=== PATIENT | male | born 1975 | race Caucasian/White ===

== ENCOUNTER 2021-05-21 17:20 | Inpatient (IN) | payer SELFPAY ==
[~2021-05-21] VITALS: Ht 188 cm; Wt 99.8 kg
[2021-05-21] MEDS ORDERED: PIPERACILLIN/TAZOBACTAM 3.375 GM in SODIUM CHLORIDE 0.9% 50ML 50 ML IV STA (17:35)
[2021-05-21] MEDS ORDERED: KETOROLAC TROMETHAMINE 30 MG/ML VIAL IV STA (17:35)
[2021-05-21] MEDS ORDERED: ACETAMINOPHEN 325 MG TAB PO ONE (17:45)
[2021-05-21] MEDS ORDERED: SODIUM CHLORIDE 0.9% IV SCH (17:45)
[2021-05-21 18:13] LABS: BASOPHILS % 0.2 % (0.0-1.0); EOSINOPHILS % 0.3 % (0.0-6.0); HEMATOCRIT 31.5 % (38.2-49.6); HEMOGLOBIN 10.5 g/dL (14.0-18.0); LYMPHOCYTES # (AUTO) 1.5 (1.0-3.2); LYMPHOCYTES % 11.7 % (18.0-39.1); MEAN CORPUSCULAR HEMOGLOBIN 26.3 pg (28-32); MEAN CORPUSCULAR HGB CONC 33.3 g/dL (31-35); MEAN CORPUSCULAR VOLUME 78.9 fL (81-99); MONOCYTES # (AUTO) 0.9 (0.2-0.8); MONOCYTES % 6.5 % (4.4-11.3); NEUTROPHILS # (AUTO) 10.6 (2.1-6.9); NEUTROPHILS % 80.5 % (38.7-80.0); PLATELET COUNT 228 x10e3/uL (140-360); RED BLOOD COUNT 3.99 x10e6/uL (4.3-5.7); RED CELL DISTRIBUTION WIDTH 12.8 % (11.7-14.4)
[2021-05-21 18:21] LABS: INR 1.05; PROTHROMBIN TIME 14.6 seconds (11.9-14.5)
[2021-05-21 18:22] LABS: PARTIAL THROMBOPLASTIN TIME 31.4 seconds (23.8-35.5)
[2021-05-21] MEDS ORDERED: HYDROMORPHONE 1MG/1ML INJ IV STA (19:00)
[2021-05-21 19:06] LABS: ALBUMIN 2.7 g/dL (3.5-5.0); ALBUMIN/GLOBULIN RATIO 0.6 (0.8-2.0); ANION GAP 15.6 mmol/L (8-16); CALCIUM 8.7 mg/dL (8.4-10.2); CREATININE, SERUM 1.49 mg/dL (0.72-1.25); POTASSIUM 3.6 mmol/L (3.5-5.1)
[2021-05-21] MEDS ORDERED: Morphine 4mg Syringe 4 MG/ML INJ IV PRN (19:15)
[2021-05-21] MEDS ORDERED: TRULICITY0.75 MG/0. PO (19:54)
[2021-05-21] MEDS ORDERED: TRESIBA100 UNIT/1 SC (19:54)
[2021-05-21] MEDS: SODIUM CHLORIDE 0.9% 1000ML 1,000 ML IV SCH ×2 (20:07→22:27)
[2021-05-21 22:15] VITALS: BP 139/84
[2021-05-21] MEDS: HYDROMORPHONE 1MG/1ML INJ IV PRN (22:20)
[2021-05-21] MEDS: PIPERACILLIN/TAZOBACTAM 3.375 GM in SODIUM CHLORIDE 0.9% 50ML 50 ML IV SCH (22:27)
[2021-05-21 23:00] VITALS: BP 139/84
[2021-05-21 23:10] VITALS: BP 139/84
[2021-05-21] MEDS: ONDANSETRON HCL INJ 2MG/ML 2ML 2 MG/ML VIAL IV PRN (23:12)
[2021-05-22] VITALS (9 sets, daily range): BP systolic 125–157; BP diastolic 70–93
[2021-05-22] MEDS: PIPERACILLIN/TAZOBACTAM 3.375 GM in SODIUM CHLORIDE 0.9% 50ML 50 ML IV SCH ×3 (00:24→12:40)
[2021-05-22] MEDS: HYDROMORPHONE 1MG/1ML INJ IV PRN ×5 (02:52→20:54)
[2021-05-22 05:36] LABS: BASOPHILS % 0.2 % (0.0-1.0); EOSINOPHILS # (AUTO) 0.1 (0.0-0.4); EOSINOPHILS % 0.7 % (0.0-6.0); HEMATOCRIT 28.4 % (38.2-49.6); HEMOGLOBIN 9.2 g/dL (14.0-18.0); LYMPHOCYTES # (AUTO) 1.9 (1.0-3.2); LYMPHOCYTES % 19.5 % (18.0-39.1); MEAN CORPUSCULAR HEMOGLOBIN 26.3 pg (28-32); MEAN CORPUSCULAR HGB CONC 32.4 g/dL (31-35); MEAN CORPUSCULAR VOLUME 81.1 fL (81-99); MONOCYTES # (AUTO) 0.7 (0.2-0.8); MONOCYTES % 7.1 % (4.4-11.3); NEUTROPHILS # (AUTO) 6.9 (2.1-6.9); NEUTROPHILS % 71.9 % (38.7-80.0); PLATELET COUNT 182 x10e3/uL (140-360); RED CELL DISTRIBUTION WIDTH 12.9 % (11.7-14.4)
[2021-05-22 05:57] LABS: ALBUMIN 2.4 g/dL (3.5-5.0); ALBUMIN/GLOBULIN RATIO 0.6 (0.8-2.0); ANION GAP 13.9 mmol/L (8-16); CALCIUM 8.3 mg/dL (8.4-10.2); CREATININE, SERUM 1.53 mg/dL (0.72-1.25); POTASSIUM 3.9 mmol/L (3.5-5.1)
[2021-05-22] MEDS: SODIUM CHLORIDE 0.9% 1000ML 1,000 ML IV SCH ×2 (07:42→20:54)
[2021-05-22] MEDS ORDERED: ONDANSETRON HCL INJ 2MG/ML 2ML 2 MG/ML VIAL ONE (12:03)
[2021-05-22] MEDS ORDERED: METOCLOPRAMIDE HCL 10 MG/2ML VIAL ONE (12:03)
[2021-05-22] MEDS ORDERED: POVIDONE IODINE 0.05% 0.05 % ML PO ONE (12:03)
[2021-05-22] MEDS ORDERED: LIDOCAINE HCL 2% LOCAL INJ 5 ML SDV VIAL INJ ONE (12:03)
[2021-05-22] MEDS ORDERED: PROPOFOL IV EMULSION 10 MG/ML 20 ML VIAL ONE (12:03)
[2021-05-22] MEDS ORDERED: BUPIVACAINE HCL 0.5% INJ 30 ML VIAL INJ ONE (12:13)
[2021-05-22] MEDS ORDERED: Vancomycin IV 1.25 GM in SODIUM CHLORIDE 0.9% 250ML 250 ML IV SCH (14:00)
[2021-05-22] MEDS ORDERED: FENTANYL CITRATE/PF 100MCG/2 ML INJ ONE ×2 (14:35→14:43)
[2021-05-22] MEDS ORDERED: MIDAZOLAM HCL 2 MG/2 ML VIAL ONE (14:35)
[2021-05-22] MEDS: PIPERACILLIN/TAZOBACTAM 2.25 GM in SODIUM CHLORIDE 0.9% 50ML 50 ML IV SCH ×2 (17:46→23:46)
[2021-05-23] VITALS (7 sets, daily range): BP systolic 137–171; BP diastolic 74–97
[2021-05-23] MEDS: HYDROMORPHONE 1MG/1ML INJ IV PRN ×5 (00:56→21:10)
[2021-05-23] MEDS: SODIUM CHLORIDE 0.9% 1000ML 1,000 ML IV SCH ×2 (02:57→12:40)
[2021-05-23] MEDS: PIPERACILLIN/TAZOBACTAM 2.25 GM in SODIUM CHLORIDE 0.9% 50ML 50 ML IV SCH ×2 (09:22→16:35)
[2021-05-23] MEDS: BENZONATATE 100 MG CAP PO SCH ×2 (12:36→20:52)
[2021-05-23] MEDS: PROMETHAZINE/CODEINE 5 ML UDC PO PRN (17:49)
[2021-05-23] MEDS: Vancomycin IV 1.25 GM in SODIUM CHLORIDE 0.9% 250ML 250 ML IV SCH (19:24)
[2021-05-23] MEDS ORDERED: FUROSEMIDE INJ 10 MG/ML 2 ML VIAL IV ONE ×2 (19:40→21:30)
[2021-05-23] MEDS ORDERED: CLONIDINE HCL 0.1 MG TAB PO PRN (20:15)
[2021-05-23] MEDS ORDERED: ASPIRIN 81 MG CHEW TAB PO ONE (20:30)
[2021-05-23 20:45] LABS: BASOPHILS % 0.3 % (0.0-1.0); EOSINOPHILS % 0.3 % (0.0-6.0); HEMATOCRIT 32.4 % (38.2-49.6); HEMOGLOBIN 10.2 g/dL (14.0-18.0); LYMPHOCYTES # (AUTO) 1.2 (1.0-3.2); LYMPHOCYTES % 7.8 % (18.0-39.1); MEAN CORPUSCULAR HGB CONC 31.5 g/dL (31-35); MEAN CORPUSCULAR VOLUME 82.4 fL (81-99); MONOCYTES # (AUTO) 1.1 (0.2-0.8); MONOCYTES % 7.1 % (4.4-11.3); NEUTROPHILS # (AUTO) 12.6 (2.1-6.9); NEUTROPHILS % 83.5 % (38.7-80.0); PLATELET COUNT 258 x10e3/uL (140-360); RED BLOOD COUNT 3.93 x10e6/uL (4.3-5.7); RED CELL DISTRIBUTION WIDTH 12.9 % (11.7-14.4)
[2021-05-23 20:59] LABS: ALBUMIN 2.6 g/dL (3.5-5.0); ALBUMIN/GLOBULIN RATIO 0.5 (0.8-2.0); ANION GAP 18.1 mmol/L (8-16); CALCIUM 8.9 mg/dL (8.4-10.2); CREATININE, SERUM 1.58 mg/dL (0.72-1.25); POTASSIUM 4.1 mmol/L (3.5-5.1)
[2021-05-23] MEDS: INSULIN GLARGINE 100 UNITS/ML VIAL SQ SCH (21:00)
[2021-05-23] MEDS: INSULIN LISPRO 100 UNIT/1 ML 3ML VIAL SQ SCH (21:00)
[2021-05-23] MEDS ORDERED: SODIUM CHLORIDE 0.9% 50ML 50 ML ONE (21:29)
[2021-05-23] MEDS ORDERED: IOPAMIDOL 370 MG/ML 200 ML INFUS..BTL INJ ONE (21:29)
[2021-05-23] MEDS: ACETAMINOPHEN 325 MG TAB PO PRN (22:00)
[2021-05-24] VITALS (14 sets, daily range): BP systolic 103–154; BP diastolic 65–82
[2021-05-24 00:02] LABS: CREATINE KINASE MB 11.1 ng/mL (0-5.0)
[2021-05-24] MEDS: HYDROMORPHONE 1MG/1ML INJ IV PRN ×5 (00:30→20:16)
[2021-05-24] MEDS: PIPERACILLIN/TAZOBACTAM 2.25 GM in SODIUM CHLORIDE 0.9% 50ML 50 ML IV SCH ×3 (00:45→17:35)
[2021-05-24] MEDS ORDERED: ASPIRIN 81 MG CHEW TAB PO ONE (05:45)
[2021-05-24 05:50] LABS: BASOPHILS % 0.2 % (0.0-1.0); EOSINOPHILS # (AUTO) 0.1 (0.0-0.4); EOSINOPHILS % 1.2 % (0.0-6.0); HEMATOCRIT 30.9 % (38.2-49.6); LYMPHOCYTES # (AUTO) 1.6 (1.0-3.2); LYMPHOCYTES % 12.8 % (18.0-39.1); MEAN CORPUSCULAR HEMOGLOBIN 26.2 pg (28-32); MEAN CORPUSCULAR HGB CONC 32.4 g/dL (31-35); MEAN CORPUSCULAR VOLUME 81.1 fL (81-99); MONOCYTES # (AUTO) 1.1 (0.2-0.8); NEUTROPHILS # (AUTO) 9.2 (2.1-6.9); NEUTROPHILS % 75.9 % (38.7-80.0); PLATELET COUNT 235 x10e3/uL (140-360); RED BLOOD COUNT 3.81 x10e6/uL (4.3-5.7); RED CELL DISTRIBUTION WIDTH 13.1 % (11.7-14.4)
[2021-05-24 06:09] LABS: ANION GAP 14.7 mmol/L (8-16); CALCIUM 8.7 mg/dL (8.4-10.2); CREATININE, SERUM 1.49 mg/dL (0.72-1.25); MAGNESIUM 1.9 MG/DL (1.3-2.1); POTASSIUM 3.7 mmol/L (3.5-5.1)
[2021-05-24] MEDS: PROMETHAZINE/CODEINE 5 ML UDC PO PRN (06:21)
[2021-05-24 07:26] LABS: CREATINE KINASE MB 12.8 ng/mL (0-5.0)
[2021-05-24] MEDS: INSULIN LISPRO 100 UNIT/1 ML 3ML VIAL SQ SCH ×4 (07:30→21:00)
[2021-05-24] MEDS: BENZONATATE 100 MG CAP PO SCH ×3 (08:18→21:07)
[2021-05-24] MEDS ORDERED: ALBUTEROL SULF 0.083% NEB SOLN 3 ML NEB NEB PRN (09:00)
[2021-05-24] MEDS ORDERED: ASPIRIN 325 MG TAB PO SCH (09:00)
[2021-05-24] MEDS ORDERED: HEPARIN SOD (PORCINE) 1000 UNIT/ML 30ML ONE (10:07)
[2021-05-24] MEDS ORDERED: LIDOCAINE HCL 2% LOCAL 20 ML VIAL ONE (10:08)
[2021-05-24] MEDS ORDERED: FENTANYL CITRATE/PF 100MCG/2 ML INJ ONE (10:08)
[2021-05-24] MEDS ORDERED: HEPARIN SOD/SOD CHLORIDE 2,000 ML ONE (10:08)
[2021-05-24] MEDS ORDERED: MIDAZOLAM HCL 2 MG/2 ML VIAL ONE (10:08)
[2021-05-24] MEDS ORDERED: IOPAMIDOL 370 MG/ML 200 ML INFUS..BTL INJ ONE (10:09)
[2021-05-24] MEDS ORDERED: NITROGLYCERIN/D5W 200 MCG/ML 250 ML ONE (10:09)
[2021-05-24] MEDS ORDERED: SODIUM CHLORIDE 0.9% 1000ML 1,000 ML ONE (10:09)
[2021-05-24] MEDS ORDERED: BIVALRIUDIN 250 MG/VIAL VIAL IV ONE (10:56)
[2021-05-24] MEDS ORDERED: SODIUM CHLORIDE 0.9% 50ML 50 ML ONE (10:57)
[2021-05-24] MEDS ORDERED: PRASUGREL 10 MG TAB ONE (11:15)
[2021-05-24] MEDS ORDERED: SODIUM CHLORIDE 0.9% 1000ML 1,000 ML IV SCH (12:15)
[2021-05-24] MEDS ORDERED: FUROSEMIDE INJ 10 MG/ML 4 ML VIAL IV ONE (16:00)
[2021-05-24] MEDS: Vancomycin IV 1.25 GM in SODIUM CHLORIDE 0.9% 250ML 250 ML IV SCH (19:00)
[2021-05-24] MEDS: ACETAMINOPHEN 325 MG TAB PO PRN (20:00)
[2021-05-24] MEDS: INSULIN GLARGINE 100 UNITS/ML VIAL SQ SCH (21:00)
[2021-05-24] MEDS ORDERED: INSULIN GLARGINE 100 UNITS/ML VIAL SQ SCH (21:00)
[2021-05-24] MEDS: ATORVASTATIN 20 MG TAB PO SCH (21:07)
[2021-05-25] VITALS (9 sets, daily range): BP systolic 127–159; BP diastolic 75–90
[2021-05-25] MEDS: HYDROMORPHONE 1MG/1ML INJ IV PRN ×6 (00:26→22:50)
[2021-05-25] MEDS: ONDANSETRON HCL INJ 2MG/ML 2ML 2 MG/ML VIAL IV PRN (04:46)
[2021-05-25 06:22] LABS: BASOPHILS % 0.3 % (0.0-1.0); EOSINOPHILS # (AUTO) 0.2 (0.0-0.4); EOSINOPHILS % 1.9 % (0.0-6.0); HEMATOCRIT 30.3 % (38.2-49.6); HEMOGLOBIN 9.5 g/dL (14.0-18.0); LYMPHOCYTES # (AUTO) 1.7 (1.0-3.2); LYMPHOCYTES % 14.7 % (18.0-39.1); MEAN CORPUSCULAR HEMOGLOBIN 25.8 pg (28-32); MEAN CORPUSCULAR HGB CONC 31.4 g/dL (31-35); MEAN CORPUSCULAR VOLUME 82.3 fL (81-99); NEUTROPHILS # (AUTO) 8.7 (2.1-6.9); NEUTROPHILS % 73.7 % (38.7-80.0); PLATELET COUNT 241 x10e3/uL (140-360); RED BLOOD COUNT 3.68 x10e6/uL (4.3-5.7); RED CELL DISTRIBUTION WIDTH 13.2 % (11.7-14.4)
[2021-05-25 06:54] LABS: ALBUMIN 2.3 g/dL (3.5-5.0); ALBUMIN/GLOBULIN RATIO 0.5 (0.8-2.0); ANION GAP 14.7 mmol/L (8-16); CALCIUM 8.8 mg/dL (8.4-10.2); CREATININE, SERUM 1.37 mg/dL (0.72-1.25); POTASSIUM 3.7 mmol/L (3.5-5.1)
[2021-05-25] MEDS: PANTOPRAZOLE SOD 40 MG TABEC PO SCH (07:30)
[2021-05-25] MEDS: INSULIN LISPRO 100 UNIT/1 ML 3ML VIAL SQ SCH ×4 (07:30→20:33)
[2021-05-25] MEDS: ASPIRIN 325 MG TAB PO SCH (09:08)
[2021-05-25] MEDS: BENZONATATE 100 MG CAP PO SCH ×3 (09:08→20:32)
[2021-05-25] MEDS: PIPERACILLIN/TAZOBACTAM 2.25 GM in SODIUM CHLORIDE 0.9% 50ML 50 ML IV SCH ×5 (09:29→23:17)
[2021-05-25] MEDS: PRASUGREL 10 MG TAB PO SCH (09:29)
[2021-05-25] MEDS ORDERED: SODIUM CHLORIDE 0.9% 250ML 250 ML ONE ×3 (09:38→20:36)
[2021-05-25] MEDS: Vancomycin IV 1.25 GM in SODIUM CHLORIDE 0.9% 250ML 250 ML IV SCH (20:32)
[2021-05-25] MEDS: ATORVASTATIN 20 MG TAB PO SCH (20:32)
[2021-05-25] MEDS: INSULIN GLARGINE 100 UNITS/ML VIAL SQ SCH (20:33)
[2021-05-26] VITALS (8 sets, daily range): BP systolic 112–141; BP diastolic 67–79
[2021-05-26] MEDS: HYDROMORPHONE 1MG/1ML INJ IV PRN ×5 (03:35→20:45)
[2021-05-26 05:29] LABS: ALBUMIN/GLOBULIN RATIO 0.5 (0.8-2.0); ANION GAP 12.4 mmol/L (8-16); CREATININE, SERUM 1.39 mg/dL (0.72-1.25); POTASSIUM 3.4 mmol/L (3.5-5.1)
[2021-05-26 05:34] LABS: BASOPHILS % 0.6 % (0.0-1.0); EOSINOPHILS # (AUTO) 0.3 (0.0-0.4); EOSINOPHILS % 4.6 % (0.0-6.0); HEMATOCRIT 27.4 % (38.2-49.6); HEMOGLOBIN 8.4 g/dL (14.0-18.0); LYMPHOCYTES # (AUTO) 1.6 (1.0-3.2); LYMPHOCYTES % 22.2 % (18.0-39.1); MEAN CORPUSCULAR HEMOGLOBIN 25.8 pg (28-32); MEAN CORPUSCULAR HGB CONC 30.7 g/dL (31-35); MEAN CORPUSCULAR VOLUME 84.3 fL (81-99); MONOCYTES # (AUTO) 0.7 (0.2-0.8); NEUTROPHILS # (AUTO) 4.5 (2.1-6.9); NEUTROPHILS % 62.1 % (38.7-80.0); PLATELET COUNT 281 x10e3/uL (140-360); RED BLOOD COUNT 3.25 x10e6/uL (4.3-5.7); RED CELL DISTRIBUTION WIDTH 13.3 % (11.7-14.4)
[2021-05-26 05:49] LABS: CALCIUM 8.5 mg/dL (8.4-10.2)
[2021-05-26] MEDS: PIPERACILLIN/TAZOBACTAM 2.25 GM in SODIUM CHLORIDE 0.9% 50ML 50 ML IV SCH ×2 (07:49→16:30)
[2021-05-26] MEDS: INSULIN LISPRO 100 UNIT/1 ML 3ML VIAL SQ SCH ×4 (08:00→20:55)
[2021-05-26] MEDS: ASPIRIN 325 MG TAB PO SCH (09:41)
[2021-05-26] MEDS: PRASUGREL 10 MG TAB PO SCH (09:42)
[2021-05-26] MEDS: BENZONATATE 100 MG CAP PO SCH ×3 (09:42→20:54)
[2021-05-26] MEDS: PANTOPRAZOLE SOD 40 MG TABEC PO SCH (09:42)
[2021-05-26] MEDS: Vancomycin IV 1 GM in SODIUM CHLORIDE 0.9% 250ML 250 ML IV SCH (19:30)
[2021-05-26] MEDS: ATORVASTATIN 20 MG TAB PO SCH (20:54)
[2021-05-26] MEDS: INSULIN GLARGINE 100 UNITS/ML VIAL SQ SCH (20:56)
[2021-05-27] MEDS: HYDROMORPHONE 1MG/1ML INJ IV PRN ×4 (00:52→14:49)
[2021-05-27 04:57] VITALS: BP 128/68
[2021-05-27] MEDS: INSULIN LISPRO 100 UNIT/1 ML 3ML VIAL SQ SCH ×2 (07:30→11:58)
[2021-05-27 08:09] VITALS: BP 142/89
[2021-05-27 08:16] VITALS: BP 142/89
[2021-05-27] MEDS: Vancomycin IV 1 GM in SODIUM CHLORIDE 0.9% 250ML 250 ML IV SCH (08:28)
[2021-05-27] MEDS: PANTOPRAZOLE SOD 40 MG TABEC PO SCH (08:29)
[2021-05-27] MEDS: BENZONATATE 100 MG CAP PO SCH ×2 (08:29→14:49)
[2021-05-27] MEDS: PRASUGREL 10 MG TAB PO SCH (08:29)
[2021-05-27] MEDS: PIPERACILLIN/TAZOBACTAM 2.25 GM in SODIUM CHLORIDE 0.9% 50ML 50 ML IV SCH ×3 (08:29)
[2021-05-27] MEDS ORDERED: ASPIRIN 81 MG ENTERIC COATED PO SCH (09:00)
[2021-05-27] MEDS ORDERED: AZITHROMYCIN 250 MG TAB PO SCH (09:00)
[2021-05-27 11:47] VITALS: BP 147/86
[2021-05-27 15:47] VITALS: BP 151/89
[2021-05-27] MEDS ORDERED: EFFIENT10 MG PO (16:04)
[2021-05-27] MEDS ORDERED: DOXYCYCLINE HY100 MG PO (16:05)
[2021-05-27] MEDS ORDERED: CIPRO500 MG PO (16:06)
[2021-05-27] MEDS ORDERED: METOPROLOL TARTRATE 25 MG TAB PO SCH (17:00)
== END 2021-05-27 17:18 | disposition home or self-care (01) | DRG 616 ==
LOC: ER 17:36 → ERHOLD 19:31 → MED/SURG3 22:03 → IMCU 05-24 12:47 → MED/SURG3 05-25 15:00
PROVIDERS: ADMIT Family Medicine; ATTEND Family Medicine
PROC: 027034Z Dilation of Coronary Artery, One Artery with Drug-eluting Intraluminal Device, Percutaneous Approach (ICD-10-PCS; principal; 2021-05-24)
PROC: 0Y6Q0Z0 Detachment at Left 1st Toe, Complete, Open Approach (ICD-10-PCS; 2021-05-24)
PROC: 4A023N7 Measurement of Cardiac Sampling and Pressure, Left Heart, Percutaneous Approach (ICD-10-PCS; 2021-05-24)
PROC: B2111ZZ Fluoroscopy of Multiple Coronary Arteries using Low Osmolar Contrast (ICD-10-PCS; 2021-05-24)
PROC: B2151ZZ Fluoroscopy of Left Heart using Low Osmolar Contrast (ICD-10-PCS; 2021-05-24)
DX: E11.69 Type 2 diabetes mellitus with other specified complication (principal); A48.0 Gas gangrene; I21.4 Non-ST elevation (NSTEMI) myocardial infarction; I50.23 Acute on chronic systolic (congestive) heart failure; J18.9 Pneumonia, unspecified organism; J96.91 Respiratory failure, unspecified with hypoxia; E11.52 Type 2 diabetes mellitus with diabetic peripheral angiopathy with gangrene; M86.172 Other acute osteomyelitis, left ankle and foot; N17.9 Acute kidney failure, unspecified; Z79.899 Other long term (current) drug therapy; E78.5 Hyperlipidemia, unspecified; Z87.820 Personal history of traumatic brain injury; E11.22 Type 2 diabetes mellitus with diabetic chronic kidney disease; I12.9 Hypertensive chronic kidney disease with stage 1 through stage 4 chronic kidney disease, or unspecified chronic kidney disease; N18.9 Chronic kidney disease, unspecified; Z79.4 Long term (current) use of insulin; Z20.822 Contact with and (suspected) exposure to COVID-19
CPT/HCPCS: 36415; 71045; 71260; 80048; 80053; 80202; 82550; 82553; 82948; 83036; 83605; 83735; 83880; 84443; 84484; 85025; 85610; 85730; 87040; 88304; 88305; 88311; 92928; 93005; 93306; 93458; 94799; 96372; 99152; 99153; 99284; C1769; C1874; C1887; J0456; J0583; J1170; J1644; J1815; J1940; J2001; J2250; J2405; J2543; J2765; J3010; J3370; J7030; J7050; Q9967; U0002

== ENCOUNTER 2021-06-25 15:27 | Inpatient (IN) | payer SELFPAY ==
[~2021-06-25] VITALS: Ht 188 cm; Wt 99.8 kg
[~2021-06-25 15:27] MED LIST: CIPRO500 MG PO; DOXYCYCLINE HY100 MG PO; EFFIENT10 MG PO; TRESIBA100 UNIT/1 SC; TRULICITY0.75 MG/0. PO
[2021-06-25] MEDS ORDERED: SODIUM CHLORIDE 0.9% 1000ML 1,000 ML IV STA (15:38)
[2021-06-25] MEDS ORDERED: Morphine 4mg Syringe 4 MG/ML INJ IV STA (15:38)
[2021-06-25] MEDS ORDERED: ONDANSETRON HCL INJ 2MG/ML 2ML 2 MG/ML VIAL IV STA (15:38)
[2021-06-25 15:59] LABS: BASOPHILS % 0.5 % (0.0-1.0); EOSINOPHILS # (AUTO) 0.1 (0.0-0.4); EOSINOPHILS % 1.5 % (0.0-6.0); HEMATOCRIT 36.4 % (38.2-49.6); HEMOGLOBIN 11.6 g/dL (14.0-18.0); LYMPHOCYTES # (AUTO) 1.8 (1.0-3.2); LYMPHOCYTES % 21.2 % (18.0-39.1); MEAN CORPUSCULAR HEMOGLOBIN 25.5 pg (28-32); MEAN CORPUSCULAR HGB CONC 31.9 g/dL (31-35); MONOCYTES # (AUTO) 0.7 (0.2-0.8); MONOCYTES % 7.8 % (4.4-11.3); NEUTROPHILS # (AUTO) 5.9 (2.1-6.9); NEUTROPHILS % 68.6 % (38.7-80.0); PLATELET COUNT 257 x10e3/uL (140-360); RED BLOOD COUNT 4.55 x10e6/uL (4.3-5.7); RED CELL DISTRIBUTION WIDTH 13.2 % (11.7-14.4)
[2021-06-25] MEDS ORDERED: PIPERACILLIN/TAZOBACTAM 3.375 GM in SODIUM CHLORIDE 0.9% 50ML 50 ML IV ONE (16:00)
[2021-06-25] MEDS ORDERED: Vancomycin IV 1 GM in SODIUM CHLORIDE 0.9% 250ML 250 ML IV ONE (16:00)
[2021-06-25 16:07] LABS: INR 0.97; PROTHROMBIN TIME 13.6 seconds (11.9-14.5)
[2021-06-25 16:18] LABS: ALBUMIN 3.4 g/dL (3.5-5.0); ALBUMIN/GLOBULIN RATIO 0.7 (0.8-2.0); ANION GAP 13.9 mmol/L (8-16); CALCIUM 9.6 mg/dL (8.4-10.2); CREATININE, SERUM 1.61 mg/dL (0.72-1.25); MAGNESIUM 1.8 MG/DL (1.3-2.1); POTASSIUM 3.9 mmol/L (3.5-5.1)
[2021-06-25 16:24] LABS: CREATINE KINASE MB 2.3 ng/mL (0-5.0)
[2021-06-25] MEDS ORDERED: Morphine 4mg Syringe 4 MG/ML INJ IV PRN (16:30)
[2021-06-25] MEDS ORDERED: ONDANSETRON HCL INJ 2MG/ML 2ML 2 MG/ML VIAL IV PRN (16:30)
[2021-06-25] MEDS ORDERED: HYDROCODONE/APAP 7.5MG-325MG 1 EA TAB PO PRN (16:45)
[2021-06-25] MEDS ORDERED: IBUPROFEN 600 MG TAB PO PRN (17:15)
[2021-06-25] MEDS ORDERED: IBUPROFEN 600 MG TAB ONE (17:30)
[2021-06-25 17:45] VITALS: BP 178/90
[2021-06-25 17:46] VITALS: BP 178/90
[2021-06-25 17:50] VITALS: BP 178/90
[2021-06-25] MEDS: SODIUM CHLORIDE 0.9% 1000ML 1,000 ML IV SCH (18:13)
[2021-06-25 19:03] LABS: CREATINE KINASE MB 1.6 ng/mL (0-5.0)
[2021-06-25 19:52] VITALS: BP 116/72
[2021-06-25 21:00] VITALS: BP 116/72
[2021-06-25] MEDS: PIPERACILLIN/TAZOBACTAM 3.375 GM in SODIUM CHLORIDE 0.9% 50ML 50 ML IV SCH (21:24)
[2021-06-25] MEDS: HYDROCODONE/APAP 10MG-325MG TAB PO PRN (21:25)
[2021-06-26] VITALS (8 sets, daily range): BP systolic 113–143; BP diastolic 69–82
[2021-06-26 01:51] LABS: CREATINE KINASE MB 1.3 ng/mL (0-5.0)
[2021-06-26] MEDS: SODIUM CHLORIDE 0.9% 1000ML 1,000 ML IV SCH ×3 (02:30→22:30)
[2021-06-26] MEDS: PIPERACILLIN/TAZOBACTAM 3.375 GM in SODIUM CHLORIDE 0.9% 50ML 50 ML IV SCH ×4 (03:03→20:53)
[2021-06-26] MEDS: HYDROCODONE/APAP 10MG-325MG TAB PO PRN ×3 (03:20→22:12)
[2021-06-26] MEDS: Vancomycin IV 1 GM in SODIUM CHLORIDE 0.9% 250ML 250 ML IV SCH ×2 (04:00→17:18)
[2021-06-26 05:01] LABS: BASOPHILS % 0.4 % (0.0-1.0); EOSINOPHILS # (AUTO) 0.4 (0.0-0.4); EOSINOPHILS % 6.9 % (0.0-6.0); HEMATOCRIT 28.8 % (38.2-49.6); HEMOGLOBIN 9.3 g/dL (14.0-18.0); LYMPHOCYTES # (AUTO) 1.9 (1.0-3.2); LYMPHOCYTES % 35.8 % (18.0-39.1); MEAN CORPUSCULAR HEMOGLOBIN 25.7 pg (28-32); MEAN CORPUSCULAR HGB CONC 32.3 g/dL (31-35); MEAN CORPUSCULAR VOLUME 79.6 fL (81-99); MONOCYTES # (AUTO) 0.6 (0.2-0.8); MONOCYTES % 11.4 % (4.4-11.3); NEUTROPHILS # (AUTO) 2.4 (2.1-6.9); NEUTROPHILS % 45.1 % (38.7-80.0); PLATELET COUNT 185 x10e3/uL (140-360); RED BLOOD COUNT 3.62 x10e6/uL (4.3-5.7); RED CELL DISTRIBUTION WIDTH 13.1 % (11.7-14.4)
[2021-06-26 05:20] LABS: ALBUMIN 2.6 g/dL (3.5-5.0); ALBUMIN/GLOBULIN RATIO 0.7 (0.8-2.0); ANION GAP 12.6 mmol/L (8-16); CALCIUM 8.4 mg/dL (8.4-10.2); CREATININE, SERUM 1.5 mg/dL (0.72-1.25); POTASSIUM 3.6 mmol/L (3.5-5.1)
[2021-06-26 07:30] LABS: CREATINE KINASE MB 1.3 ng/mL (0-5.0)
[2021-06-26] MEDS: HYDROMORPHONE 1MG/1ML INJ IV PRN ×2 (13:35→19:45)
[2021-06-27] VITALS (8 sets, daily range): BP systolic 130–148; BP diastolic 76–91
[2021-06-27] MEDS: HYDROMORPHONE 1MG/1ML INJ IV PRN ×4 (02:10→21:37)
[2021-06-27] MEDS: PIPERACILLIN/TAZOBACTAM 3.375 GM in SODIUM CHLORIDE 0.9% 50ML 50 ML IV SCH ×4 (02:50→19:57)
[2021-06-27] MEDS: HYDROCODONE/APAP 10MG-325MG TAB PO PRN ×2 (04:16→19:57)
[2021-06-27] MEDS: Vancomycin IV 1 GM in SODIUM CHLORIDE 0.9% 250ML 250 ML IV SCH ×2 (04:17→17:55)
[2021-06-27] MEDS: POLYETHYLENE GLYCOL 3350 17 GM PACK PO SCH (07:38)
[2021-06-27] MEDS: SODIUM CHLORIDE 0.9% 1000ML 1,000 ML IV SCH ×2 (08:47→17:55)
[2021-06-27] MEDS ORDERED: ONDANSETRON HCL 4 MG ORAL DISINTEGRATING TAB PO PRN (10:30)
[2021-06-27] MEDS ORDERED: KETOROLAC TROMETHAMINE 30 MG/ML VIAL ONE (12:50)
[2021-06-27] MEDS ORDERED: ONDANSETRON HCL INJ 2MG/ML 2ML 2 MG/ML VIAL ONE (12:50)
[2021-06-27] MEDS ORDERED: PROPOFOL IV EMULSION 10 MG/ML 20 ML VIAL ONE (12:50)
[2021-06-27] MEDS ORDERED: POVIDONE IODINE 0.05% 0.05 % ML PO ONE (12:50)
[2021-06-27] MEDS ORDERED: DEXAMETHASONE SOD PHOS INJ 4 MG/ML SDV ONE (12:50)
[2021-06-27] MEDS ORDERED: LIDOCAINE HCL 2% LOCAL INJ 5 ML SDV VIAL INJ ONE (12:50)
[2021-06-27] MEDS ORDERED: BUPIVACAINE HCL 0.5% INJ 30 ML VIAL INJ ONE (13:29)
[2021-06-27] MEDS ORDERED: FENTANYL CITRATE/PF 100MCG/2 ML INJ ONE (13:39)
[2021-06-27] MEDS ORDERED: MIDAZOLAM HCL 2 MG/2 ML VIAL ONE (13:39)
[2021-06-28] VITALS (7 sets, daily range): BP systolic 137–164; BP diastolic 72–86
[2021-06-28] MEDS: HYDROCODONE/APAP 10MG-325MG TAB PO PRN ×4 (01:20→21:25)
[2021-06-28] MEDS: PIPERACILLIN/TAZOBACTAM 3.375 GM in SODIUM CHLORIDE 0.9% 50ML 50 ML IV SCH ×4 (03:54→20:50)
[2021-06-28] MEDS: HYDROMORPHONE 1MG/1ML INJ IV PRN ×3 (03:55→16:36)
[2021-06-28] MEDS: SODIUM CHLORIDE 0.9% 1000ML 1,000 ML IV SCH ×2 (04:38→14:46)
[2021-06-28] MEDS: Vancomycin IV 1 GM in SODIUM CHLORIDE 0.9% 250ML 250 ML IV SCH ×2 (04:38→16:25)
[2021-06-28 06:01] LABS: BASOPHILS % 0.3 % (0.0-1.0); EOSINOPHILS % 0.2 % (0.0-6.0); HEMATOCRIT 28.6 % (38.2-49.6); LYMPHOCYTES # (AUTO) 1.2 (1.0-3.2); LYMPHOCYTES % 19.6 % (18.0-39.1); MEAN CORPUSCULAR HEMOGLOBIN 25.1 pg (28-32); MEAN CORPUSCULAR HGB CONC 31.5 g/dL (31-35); MEAN CORPUSCULAR VOLUME 79.7 fL (81-99); MONOCYTES # (AUTO) 0.4 (0.2-0.8); MONOCYTES % 6.8 % (4.4-11.3); NEUTROPHILS # (AUTO) 4.5 (2.1-6.9); NEUTROPHILS % 72.9 % (38.7-80.0); PLATELET COUNT 216 x10e3/uL (140-360); RED BLOOD COUNT 3.59 x10e6/uL (4.3-5.7)
[2021-06-28 06:20] LABS: ANION GAP 12.1 mmol/L (8-16); CALCIUM 8.3 mg/dL (8.4-10.2); CREATININE, SERUM 1.33 mg/dL (0.72-1.25); POTASSIUM 4.1 mmol/L (3.5-5.1)
[2021-06-28] MEDS: POLYETHYLENE GLYCOL 3350 17 GM PACK PO SCH (08:44)
[2021-06-28] MEDS: INSULIN GLARGINE 100 UNITS/ML VIAL SQ SCH ×2 (09:42→22:03)
[2021-06-29] MEDS: SODIUM CHLORIDE 0.9% 1000ML 1,000 ML IV SCH (00:55)
[2021-06-29 01:05] VITALS: BP 164/86
[2021-06-29] MEDS: PIPERACILLIN/TAZOBACTAM 3.375 GM in SODIUM CHLORIDE 0.9% 50ML 50 ML IV SCH ×4 (02:57→20:30)
[2021-06-29 04:00] VITALS: BP 151/82
[2021-06-29] MEDS: Vancomycin IV 1 GM in SODIUM CHLORIDE 0.9% 250ML 250 ML IV SCH ×2 (04:05→17:29)
[2021-06-29 06:08] LABS: BASOPHILS % 0.3 % (0.0-1.0); EOSINOPHILS # (AUTO) 0.2 (0.0-0.4); EOSINOPHILS % 3.7 % (0.0-6.0); HEMATOCRIT 27.2 % (38.2-49.6); HEMOGLOBIN 8.8 g/dL (14.0-18.0); LYMPHOCYTES # (AUTO) 2.9 (1.0-3.2); LYMPHOCYTES % 48.7 % (18.0-39.1); MEAN CORPUSCULAR HEMOGLOBIN 25.6 pg (28-32); MEAN CORPUSCULAR HGB CONC 32.4 g/dL (31-35); MEAN CORPUSCULAR VOLUME 79.1 fL (81-99); MONOCYTES # (AUTO) 0.3 (0.2-0.8); NEUTROPHILS # (AUTO) 2.5 (2.1-6.9); PLATELET COUNT 191 x10e3/uL (140-360); RED BLOOD COUNT 3.44 x10e6/uL (4.3-5.7); RED CELL DISTRIBUTION WIDTH 13.2 % (11.7-14.4)
[2021-06-29 06:44] LABS: ALBUMIN 2.6 g/dL (3.5-5.0); ALBUMIN/GLOBULIN RATIO 0.7 (0.8-2.0); ANION GAP 12.6 mmol/L (8-16); CALCIUM 8.2 mg/dL (8.4-10.2); CREATININE, SERUM 1.32 mg/dL (0.72-1.25); POTASSIUM 3.6 mmol/L (3.5-5.1)
[2021-06-29 08:43] VITALS: BP 151/82
[2021-06-29] MEDS: INSULIN GLARGINE 100 UNITS/ML VIAL SQ SCH ×2 (09:00→21:24)
[2021-06-29] MEDS: HYDROMORPHONE 1MG/1ML INJ IV PRN ×3 (09:10→21:24)
[2021-06-29] MEDS: POLYETHYLENE GLYCOL 3350 17 GM PACK PO SCH (09:28)
[2021-06-29] MEDS: PRASUGREL 10 MG TAB PO SCH (11:20)
[2021-06-29] MEDS: HYDROCODONE/APAP 10MG-325MG TAB PO PRN (12:55)
[2021-06-29] MEDS ORDERED: OLMESARTAN 20 MG TAB PO STA (16:11)
[2021-06-29 20:00] VITALS: BP 160/94
[2021-06-30] VITALS (8 sets, daily range): BP systolic 139–166; BP diastolic 77–90
[2021-06-30] MEDS: PIPERACILLIN/TAZOBACTAM 3.375 GM in SODIUM CHLORIDE 0.9% 50ML 50 ML IV SCH ×4 (02:49→21:25)
[2021-06-30] MEDS: HYDROMORPHONE 1MG/1ML INJ IV PRN ×3 (03:25→18:24)
[2021-06-30] MEDS: Vancomycin IV 1 GM in SODIUM CHLORIDE 0.9% 250ML 250 ML IV SCH ×2 (05:06→16:35)
[2021-06-30 05:16] LABS: BASOPHILS % 0.5 % (0.0-1.0); EOSINOPHILS # (AUTO) 0.4 (0.0-0.4); EOSINOPHILS % 4.9 % (0.0-6.0); HEMATOCRIT 31.1 % (38.2-49.6); HEMOGLOBIN 9.7 g/dL (14.0-18.0); LYMPHOCYTES # (AUTO) 2.9 (1.0-3.2); LYMPHOCYTES % 37.6 % (18.0-39.1); MEAN CORPUSCULAR HEMOGLOBIN 25.2 pg (28-32); MEAN CORPUSCULAR HGB CONC 31.2 g/dL (31-35); MEAN CORPUSCULAR VOLUME 80.8 fL (81-99); MONOCYTES # (AUTO) 0.5 (0.2-0.8); MONOCYTES % 6.6 % (4.4-11.3); NEUTROPHILS # (AUTO) 3.9 (2.1-6.9); NEUTROPHILS % 49.6 % (38.7-80.0); PLATELET COUNT 234 x10e3/uL (140-360); RED BLOOD COUNT 3.85 x10e6/uL (4.3-5.7); RED CELL DISTRIBUTION WIDTH 13.4 % (11.7-14.4)
[2021-06-30 05:54] LABS: ANION GAP 14.4 mmol/L (8-16); CALCIUM 8.4 mg/dL (8.4-10.2); CREATININE, SERUM 1.27 mg/dL (0.72-1.25); POTASSIUM 3.4 mmol/L (3.5-5.1)
[2021-06-30] MEDS: ASPIRIN 81 MG CHEW TAB PO SCH (08:27)
[2021-06-30] MEDS: POLYETHYLENE GLYCOL 3350 17 GM PACK PO SCH (08:27)
[2021-06-30] MEDS: OLMESARTAN 20 MG TAB PO SCH (08:27)
[2021-06-30] MEDS: PRASUGREL 10 MG TAB PO SCH (08:27)
[2021-06-30] MEDS: AMLODIPINE BESYLATE 5 MG TAB PO SCH (08:28)
[2021-06-30] MEDS: INSULIN GLARGINE 100 UNITS/ML VIAL SQ SCH ×2 (08:55→21:26)
[2021-06-30] MEDS: HYDROCODONE/APAP 10MG-325MG TAB PO PRN ×3 (09:30→21:57)
[2021-07-01] VITALS: BP 153/90
[2021-07-01] MEDS: HYDROMORPHONE 1MG/1ML INJ IV PRN ×2 (00:51→07:02)
[2021-07-01] MEDS: HYDROCODONE/APAP 10MG-325MG TAB PO PRN ×2 (03:58→10:16)
[2021-07-01] MEDS: PIPERACILLIN/TAZOBACTAM 3.375 GM in SODIUM CHLORIDE 0.9% 50ML 50 ML IV SCH (03:58)
[2021-07-01 04:35] VITALS: BP 152/87
[2021-07-01] MEDS: Vancomycin IV 1 GM in SODIUM CHLORIDE 0.9% 250ML 250 ML IV SCH (04:50)
[2021-07-01 07:54] VITALS: BP 152/87
[2021-07-01 08:10] VITALS: BP 144/81
[2021-07-01] MEDS: PRASUGREL 10 MG TAB PO SCH (09:06)
[2021-07-01] MEDS: AMLODIPINE BESYLATE 5 MG TAB PO SCH (09:06)
[2021-07-01] MEDS: OLMESARTAN 20 MG TAB PO SCH (09:06)
[2021-07-01] MEDS: ASPIRIN 81 MG CHEW TAB PO SCH (09:06)
== END 2021-07-01 10:35 | disposition home or self-care (01) | DRG 857 ==
LOC: ER 15:51 → ERHOLD 16:35 → MED/SURG3 17:27
PROC: 0KBW0ZZ Excision of Left Foot Muscle, Open Approach (ICD-10-PCS; 2021-06-27)
PROC: 0Y6N0Z9 Detachment at Left Foot, Partial 1st Ray, Open Approach (ICD-10-PCS; principal; 2021-06-27 13:30)
DX: T81.42XA Infection following a procedure, deep incisional surgical site, initial encounter (principal); M86.172 Other acute osteomyelitis, left ankle and foot; E11.52 Type 2 diabetes mellitus with diabetic peripheral angiopathy with gangrene; I96 Gangrene, not elsewhere classified; D63.8 Anemia in other chronic diseases classified elsewhere; E11.69 Type 2 diabetes mellitus with other specified complication; E11.621 Type 2 diabetes mellitus with foot ulcer; E11.22 Type 2 diabetes mellitus with diabetic chronic kidney disease; I13.10 Hypertensive heart and chronic kidney disease without heart failure, with stage 1 through stage 4 chronic kidney disease, or unspecified chronic kidney disease; N18.2 Chronic kidney disease, stage 2 (mild); I25.10 Atherosclerotic heart disease of native coronary artery without angina pectoris; Z95.5 Presence of coronary angioplasty implant and graft; Z91.048 Other nonmedicinal substance allergy status; Z89.412 Acquired absence of left great toe; Z87.820 Personal history of traumatic brain injury; Z72.0 Tobacco use; I25.2 Old myocardial infarction; Z79.4 Long term (current) use of insulin; Z79.899 Other long term (current) drug therapy; Z20.822 Contact with and (suspected) exposure to COVID-19
CPT/HCPCS: 36415; 71045; 80048; 80053; 80202; 82550; 82553; 82948; 83036; 83605; 83735; 84484; 85025; 85610; 87040; 87071; 87075; 87116; 87205; 87206; 88304; 88305; 88311; 93005; 94799; 96361; 99251; 99284; J1100; J1170; J1815; J1885; J2001; J2250; J2270; J2405; J2543; J3010; J3370; J7030; J7050; U0002

== ENCOUNTER 2021-08-02 20:22 | Inpatient (IN) | payer SELFPAY ==
[~2021-08-02] VITALS: Ht 188 cm; Wt 97.5 kg
[2021-08-02] MEDS ORDERED: ONDANSETRON HCL INJ 2MG/ML 2ML 2 MG/ML VIAL IV STA (20:50)
[2021-08-02] MEDS ORDERED: HYDROMORPHONE 1MG/1ML INJ IV STA (20:50)
[2021-08-02] MEDS ORDERED: ACETAMINOPHEN 325 MG TAB PO STA (20:50)
[2021-08-02] MEDS: PIPERACILLIN/TAZOBACTAM 3.375 GM in SODIUM CHLORIDE 0.9% 50ML 50 ML IV SCH ×2 (21:00→21:10)
[2021-08-02 21:26] LABS: BASOPHILS # (AUTO) 0.1 (0.0-0.1); BASOPHILS % 0.3 % (0.0-1.0); EOSINOPHILS # (AUTO) 0.1 (0.0-0.4); EOSINOPHILS % 0.9 % (0.0-6.0); HEMATOCRIT 31.1 % (38.2-49.6); HEMOGLOBIN 10.3 g/dL (14.0-18.0); LYMPHOCYTES # (AUTO) 1.3 (1.0-3.2); LYMPHOCYTES % 8.7 % (18.0-39.1); MEAN CORPUSCULAR HGB CONC 33.1 g/dL (31-35); MEAN CORPUSCULAR VOLUME 75.5 fL (81-99); MONOCYTES # (AUTO) 1.2 (0.2-0.8); MONOCYTES % 7.9 % (4.4-11.3); NEUTROPHILS # (AUTO) 12.2 (2.1-6.9); NEUTROPHILS % 81.4 % (38.7-80.0); PLATELET COUNT 308 x10e3/uL (140-360); RED BLOOD COUNT 4.12 x10e6/uL (4.3-5.7); RED CELL DISTRIBUTION WIDTH 13.8 % (11.7-14.4)
[2021-08-02] MEDS ORDERED: DEXTROSE 50% SYRINGE 50 ML IV PRN (21:45)
[2021-08-02 21:50] LABS: ALBUMIN 2.9 g/dL (3.5-5.0); ALBUMIN/GLOBULIN RATIO 0.5 (0.8-2.0); ANION GAP 15.7 mmol/L (8-16); CALCIUM 8.8 mg/dL (8.4-10.2); CREATININE, SERUM 1.76 mg/dL (0.72-1.25); POTASSIUM 3.7 mmol/L (3.5-5.1)
[2021-08-02] MEDS ORDERED: SODIUM CHLORIDE 0.9% 1000ML 1,000 ML IV STA (22:12)
[2021-08-02] MEDS ORDERED: Vancomycin IV 1 GM in SODIUM CHLORIDE 0.9% 250ML 250 ML IV STA (22:12)
[2021-08-02 22:35] LABS: CREATINE KINASE MB 1.6 ng/mL (0-5.0)
[2021-08-02] MEDS: INSULIN REGULAR, HUMAN 100 UNIT/1 ML SQ SCH (22:35)
[2021-08-02] MEDS: HYDROMORPHONE 1MG/1ML INJ IV PRN (22:35)
[2021-08-02] MEDS: ONDANSETRON HCL INJ 2MG/ML 2ML 2 MG/ML VIAL IV PRN (22:35)
[2021-08-02] MEDS: SODIUM CHLORIDE 0.9% 1000ML 1,000 ML IV SCH (22:40)
[2021-08-02] MEDS ORDERED: Morphine 2mg Syringe 2 MG/ML SYR IV PRN (23:15)
[2021-08-02] MEDS ORDERED: HYDROCODONE/APAP 5MG-325MG TAB PO PRN (23:15)
[2021-08-02 23:35] VITALS: BP 102/64
[2021-08-03] VITALS (8 sets, daily range): BP systolic 102–141; BP diastolic 61–76
[2021-08-03] MEDS: HYDROMORPHONE 1MG/1ML INJ IV PRN ×6 (01:58→21:44)
[2021-08-03] MEDS: SODIUM CHLORIDE 0.9% 1000ML 1,000 ML IV SCH ×3 (06:04→21:40)
[2021-08-03] MEDS: PIPERACILLIN/TAZOBACTAM 3.375 GM in SODIUM CHLORIDE 0.9% 50ML 50 ML IV SCH ×3 (06:04→21:00)
[2021-08-03 07:06] LABS: BASOPHILS # (AUTO) 0.1 (0.0-0.1); BASOPHILS % 0.4 % (0.0-1.0); EOSINOPHILS # (AUTO) 0.3 (0.0-0.4); EOSINOPHILS % 2.4 % (0.0-6.0); HEMATOCRIT 30.5 % (38.2-49.6); HEMOGLOBIN 9.8 g/dL (14.0-18.0); LYMPHOCYTES # (AUTO) 1.8 (1.0-3.2); LYMPHOCYTES % 14.8 % (18.0-39.1); MEAN CORPUSCULAR HEMOGLOBIN 24.6 pg (28-32); MEAN CORPUSCULAR HGB CONC 32.1 g/dL (31-35); MEAN CORPUSCULAR VOLUME 76.4 fL (81-99); MONOCYTES % 7.7 % (4.4-11.3); NEUTROPHILS # (AUTO) 9.1 (2.1-6.9); NEUTROPHILS % 74.2 % (38.7-80.0); PLATELET COUNT 296 x10e3/uL (140-360); RED BLOOD COUNT 3.99 x10e6/uL (4.3-5.7); RED CELL DISTRIBUTION WIDTH 14.1 % (11.7-14.4)
[2021-08-03 07:23] LABS: ALBUMIN 2.3 g/dL (3.5-5.0); ALBUMIN/GLOBULIN RATIO 0.5 (0.8-2.0); ANION GAP 10.5 mmol/L (8-16); CREATININE, SERUM 1.62 mg/dL (0.72-1.25); POTASSIUM 3.5 mmol/L (3.5-5.1)
[2021-08-03] MEDS: INSULIN REGULAR, HUMAN 100 UNIT/1 ML SQ SCH ×4 (07:30→21:00)
[2021-08-03 07:46] LABS: CREATINE KINASE MB 2.5 ng/mL (0-5.0)
[2021-08-03] MEDS: PRASUGREL 10 MG TAB PO SCH (09:05)
[2021-08-03 09:25] LABS: CLARITY,URINE CLEAR (CLEAR); COLOR,URINE YELLOW (YELLOW); LEUKOCYTE ESTERASE ,URINE NEGATIVE (NEGATIVE)
[2021-08-03 09:26] LABS: KETONES,URINE NEGATIVE (NEGATIVE); NITRITE,URINE NEGATIVE (NEGATIVE); PROTEIN,URINE DIPSTICK NEGATIVE (NEGATIVE); URINE UROBILINOGEN 0.2 mg/dL (0.2 - 1)
[2021-08-03 09:33] LABS: BACTERIA,URINE FEW /HPF; EPITHELIAL CELLS,URINE MODERATE /LPF; RBC,URINE 0-5 /HPF (0-5); WBC,URINE (MAN) 0-5 /HPF (0-5)
[2021-08-03] MEDS ORDERED: TRULICITY PO SCH (12:00)
[2021-08-03] MEDS ORDERED: TRESIBA 20 UNIT SC PRN (12:00)
[2021-08-03] MEDS ORDERED: POTASSIUM CHLORIDE 20 MEQ TAB CR PO NR (12:30)
[2021-08-03] MEDS ORDERED: BISACODYL 5 MG TAB EC PO PRN (13:00)
[2021-08-03] MEDS ORDERED: BISACODYL 5 MG TAB EC PO NR (13:00)
[2021-08-03] MEDS ORDERED: HYDROCODON-ACE1 EA12 PO (14:15)
[2021-08-03] MEDS: DOCUSATE SODIUM 100 MG CAP PO SCH ×2 (15:20→21:38)
[2021-08-03 15:36] LABS: CREATINE KINASE MB 1.8 ng/mL (0-5.0)
[2021-08-03] MEDS: POLYETHYLENE GLYCOL 3350 17 GM PACK PO SCH (17:27)
[2021-08-03] MEDS: ACETAMINOPHEN 325 MG TAB PO PRN (22:03)
[2021-08-04] VITALS (8 sets, daily range): BP systolic 118–155; BP diastolic 65–91
[2021-08-04] MEDS: HYDROMORPHONE 1MG/1ML INJ IV PRN ×7 (01:00→21:29)
[2021-08-04] MEDS: SODIUM CHLORIDE 0.9% 1000ML 1,000 ML IV SCH ×3 (05:30→18:15)
[2021-08-04 06:14] LABS: BASOPHILS % 0.4 % (0.0-1.0); EOSINOPHILS # (AUTO) 0.1 (0.0-0.4); EOSINOPHILS % 1.4 % (0.0-6.0); HEMATOCRIT 25.4 % (38.2-49.6); HEMOGLOBIN 8.4 g/dL (14.0-18.0); LYMPHOCYTES # (AUTO) 1.7 (1.0-3.2); LYMPHOCYTES % 17.5 % (18.0-39.1); MEAN CORPUSCULAR HEMOGLOBIN 25.2 pg (28-32); MEAN CORPUSCULAR HGB CONC 33.1 g/dL (31-35); MEAN CORPUSCULAR VOLUME 76.3 fL (81-99); MONOCYTES # (AUTO) 0.8 (0.2-0.8); NEUTROPHILS # (AUTO) 7.2 (2.1-6.9); PLATELET COUNT 247 x10e3/uL (140-360); RED BLOOD COUNT 3.33 x10e6/uL (4.3-5.7); RED CELL DISTRIBUTION WIDTH 14.2 % (11.7-14.4)
[2021-08-04 06:41] LABS: ANION GAP 11.5 mmol/L (8-16); CALCIUM 7.6 mg/dL (8.4-10.2); CHOL/HDL RATIO 5.5 (3.9-4.7); CREATININE, SERUM 1.37 mg/dL (0.72-1.25); MAGNESIUM 1.8 MG/DL (1.3-2.1); PHOSPHORUS 2.1 MG/DL (2.3-4.7); POTASSIUM 3.5 mmol/L (3.5-5.1)
[2021-08-04] MEDS: INSULIN REGULAR, HUMAN 100 UNIT/1 ML SQ SCH ×4 (07:30→21:00)
[2021-08-04] MEDS: POLYETHYLENE GLYCOL 3350 17 GM PACK PO SCH ×2 (09:00→15:18)
[2021-08-04] MEDS: PIPERACILLIN/TAZOBACTAM 3.375 GM in SODIUM CHLORIDE 0.9% 50ML 50 ML IV SCH ×2 (09:00→21:28)
[2021-08-04] MEDS: PRASUGREL 10 MG TAB PO SCH (09:00)
[2021-08-04] MEDS: DOCUSATE SODIUM 100 MG CAP PO SCH ×3 (09:00→21:28)
[2021-08-04] MEDS ORDERED: DEXAMETHASONE SOD PHOS INJ 4 MG/ML SDV ONE (10:34)
[2021-08-04] MEDS ORDERED: BUPIVACAINE HCL 0.5% INJ 30 ML VIAL INJ ONE (10:34)
[2021-08-04] MEDS: ONDANSETRON HCL INJ 2MG/ML 2ML 2 MG/ML VIAL IV PRN (11:08)
[2021-08-04] MEDS ORDERED: SEVOFLURANE INHAL SOLN 250 ML PEN BTL ONE (12:48)
[2021-08-04] MEDS ORDERED: PROPOFOL IV EMULSION 10 MG/ML 20 ML VIAL ONE (12:48)
[2021-08-04] MEDS ORDERED: LIDOCAINE HCL 2% LOCAL INJ 5 ML SDV VIAL INJ ONE (12:48)
[2021-08-04] MEDS ORDERED: POVIDONE IODINE 0.05% 0.05 % ML PO ONE (12:48)
[2021-08-04] MEDS ORDERED: ACETAMINOPHEN 1000 MG/100 ML 100 ML IV ONE (13:20)
[2021-08-04] MEDS ORDERED: FENTANYL CITRATE/PF 100MCG/2 ML INJ ONE (13:37)
[2021-08-05] VITALS (7 sets, daily range): BP systolic 137–152; BP diastolic 75–89
[2021-08-05] MEDS: ACETAMINOPHEN 325 MG TAB PO PRN ×3 (00:45→16:58)
[2021-08-05] MEDS: HYDROMORPHONE 1MG/1ML INJ IV PRN ×8 (00:45→21:31)
[2021-08-05 05:52] LABS: BASOPHILS % 0.3 % (0.0-1.0); EOSINOPHILS # (AUTO) 0.1 (0.0-0.4); EOSINOPHILS % 1.1 % (0.0-6.0); HEMATOCRIT 29.2 % (38.2-49.6); HEMOGLOBIN 9.2 g/dL (14.0-18.0); LYMPHOCYTES # (AUTO) 1.8 (1.0-3.2); LYMPHOCYTES % 17.2 % (18.0-39.1); MEAN CORPUSCULAR HEMOGLOBIN 24.5 pg (28-32); MEAN CORPUSCULAR HGB CONC 31.5 g/dL (31-35); MEAN CORPUSCULAR VOLUME 77.9 fL (81-99); MONOCYTES # (AUTO) 0.9 (0.2-0.8); MONOCYTES % 8.9 % (4.4-11.3); NEUTROPHILS # (AUTO) 7.4 (2.1-6.9); NEUTROPHILS % 71.6 % (38.7-80.0); PLATELET COUNT 270 x10e3/uL (140-360); RED BLOOD COUNT 3.75 x10e6/uL (4.3-5.7); RED CELL DISTRIBUTION WIDTH 14.7 % (11.7-14.4)
[2021-08-05 06:15] LABS: ANION GAP 12.9 mmol/L (8-16); CALCIUM 8.4 mg/dL (8.4-10.2); CREATININE, SERUM 1.4 mg/dL (0.72-1.25); PHOSPHORUS 2.6 MG/DL (2.3-4.7); POTASSIUM 3.9 mmol/L (3.5-5.1)
[2021-08-05] MEDS: SODIUM CHLORIDE 0.9% 1000ML 1,000 ML IV SCH ×3 (06:20→20:59)
[2021-08-05] MEDS: INSULIN REGULAR, HUMAN 100 UNIT/1 ML SQ SCH ×4 (08:00→20:58)
[2021-08-05] MEDS: POLYETHYLENE GLYCOL 3350 17 GM PACK PO SCH ×2 (09:17→16:55)
[2021-08-05] MEDS: PIPERACILLIN/TAZOBACTAM 3.375 GM in SODIUM CHLORIDE 0.9% 50ML 50 ML IV SCH ×2 (09:17→20:32)
[2021-08-05] MEDS: PRASUGREL 10 MG TAB PO SCH (09:17)
[2021-08-05] MEDS: DOCUSATE SODIUM 100 MG CAP PO SCH ×3 (09:17→20:32)
[2021-08-05] MEDS: Vancomycin IV 1 GM in SODIUM CHLORIDE 0.9% 250ML 250 ML IV SCH (15:52)
[2021-08-05] MEDS: ATORVASTATIN 40 MG TAB PO SCH (20:32)
[2021-08-06] MEDS: HYDROMORPHONE 1MG/1ML INJ IV PRN ×8 (00:42→23:30)
[2021-08-06] MEDS: SODIUM CHLORIDE 0.9% 1000ML 1,000 ML IV SCH ×3 (04:43→22:39)
[2021-08-06 05:45] VITALS: BP 122/60
[2021-08-06] MEDS: ACETAMINOPHEN 325 MG TAB PO PRN (05:54)
[2021-08-06 06:15] LABS: BASOPHILS % 0.2 % (0.0-1.0); EOSINOPHILS # (AUTO) 0.2 (0.0-0.4); EOSINOPHILS % 2.3 % (0.0-6.0); HEMATOCRIT 24.9 % (38.2-49.6); LYMPHOCYTES # (AUTO) 1.8 (1.0-3.2); MEAN CORPUSCULAR HEMOGLOBIN 24.6 pg (28-32); MEAN CORPUSCULAR HGB CONC 32.1 g/dL (31-35); MEAN CORPUSCULAR VOLUME 76.6 fL (81-99); MONOCYTES # (AUTO) 0.7 (0.2-0.8); MONOCYTES % 7.3 % (4.4-11.3); NEUTROPHILS # (AUTO) 6.7 (2.1-6.9); NEUTROPHILS % 70.2 % (38.7-80.0); PLATELET COUNT 297 x10e3/uL (140-360); RED BLOOD COUNT 3.25 x10e6/uL (4.3-5.7); RED CELL DISTRIBUTION WIDTH 14.7 % (11.7-14.4)
[2021-08-06 06:39] LABS: ALBUMIN/GLOBULIN RATIO 0.4 (0.8-2.0); ANION GAP 10.6 mmol/L (8-16); CREATININE, SERUM 1.26 mg/dL (0.72-1.25); POTASSIUM 3.6 mmol/L (3.5-5.1)
[2021-08-06 08:15] VITALS: BP 136/75
[2021-08-06] MEDS: INSULIN REGULAR, HUMAN 100 UNIT/1 ML SQ SCH ×4 (08:15→22:47)
[2021-08-06 08:33] VITALS: BP 136/75
[2021-08-06] MEDS: Vancomycin IV 1 GM in SODIUM CHLORIDE 0.9% 250ML 250 ML IV SCH (08:38)
[2021-08-06] MEDS: DOCUSATE SODIUM 100 MG CAP PO SCH ×3 (08:38→22:38)
[2021-08-06] MEDS: PRASUGREL 10 MG TAB PO SCH (08:38)
[2021-08-06] MEDS: ASPIRIN 81 MG ENTERIC COATED PO SCH (08:38)
[2021-08-06] MEDS: PIPERACILLIN/TAZOBACTAM 3.375 GM in SODIUM CHLORIDE 0.9% 50ML 50 ML IV SCH ×2 (08:38→22:38)
[2021-08-06] MEDS: POLYETHYLENE GLYCOL 3350 17 GM PACK PO SCH ×2 (08:38→16:02)
[2021-08-06 11:24] VITALS: BP 129/74
[2021-08-06 16:44] VITALS: BP 147/76
[2021-08-06 20:04] VITALS: BP 173/90
[2021-08-06] MEDS: ATORVASTATIN 40 MG TAB PO SCH (22:38)
[2021-08-07] VITALS (8 sets, daily range): BP systolic 129–157; BP diastolic 76–88
[2021-08-07] MEDS: HYDROMORPHONE 1MG/1ML INJ IV PRN ×6 (02:35→21:30)
[2021-08-07] MEDS: SODIUM CHLORIDE 0.9% 1000ML 1,000 ML IV SCH ×3 (04:52→21:59)
[2021-08-07 06:16] LABS: BASOPHILS % 0.3 % (0.0-1.0); EOSINOPHILS # (AUTO) 0.2 (0.0-0.4); EOSINOPHILS % 2.6 % (0.0-6.0); HEMATOCRIT 23.1 % (38.2-49.6); HEMOGLOBIN 7.4 g/dL (14.0-18.0); LYMPHOCYTES # (AUTO) 1.9 (1.0-3.2); MONOCYTES # (AUTO) 0.5 (0.2-0.8); MONOCYTES % 7.5 % (4.4-11.3); NEUTROPHILS # (AUTO) 4.2 (2.1-6.9); NEUTROPHILS % 60.2 % (38.7-80.0); PLATELET COUNT 304 x10e3/uL (140-360); RED BLOOD COUNT 2.96 x10e6/uL (4.3-5.7); RED CELL DISTRIBUTION WIDTH 14.7 % (11.7-14.4)
[2021-08-07 06:48] LABS: ALBUMIN 1.9 g/dL (3.5-5.0); ALBUMIN/GLOBULIN RATIO 0.4 (0.8-2.0); ANION GAP 8.5 mmol/L (8-16); CALCIUM 7.8 mg/dL (8.4-10.2); CREATININE, SERUM 1.11 mg/dL (0.72-1.25); POTASSIUM 3.5 mmol/L (3.5-5.1)
[2021-08-07] MEDS: INSULIN REGULAR, HUMAN 100 UNIT/1 ML SQ SCH ×4 (07:30→22:28)
[2021-08-07] MEDS: PIPERACILLIN/TAZOBACTAM 3.375 GM in SODIUM CHLORIDE 0.9% 50ML 50 ML IV SCH ×2 (09:00→21:59)
[2021-08-07] MEDS: PRASUGREL 10 MG TAB PO SCH (09:06)
[2021-08-07] MEDS: POLYETHYLENE GLYCOL 3350 17 GM PACK PO SCH ×2 (09:06→17:00)
[2021-08-07] MEDS: DOCUSATE SODIUM 100 MG CAP PO SCH ×3 (09:06→21:59)
[2021-08-07] MEDS: ASPIRIN 81 MG ENTERIC COATED PO SCH (09:06)
[2021-08-07] MEDS ORDERED: SODIUM CHLORIDE 0.9% 50ML 50 ML ONE (09:20)
[2021-08-07] MEDS: Vancomycin IV 1 GM in SODIUM CHLORIDE 0.9% 250ML 250 ML IV SCH ×2 (09:30→21:59)
[2021-08-07] MEDS: ATORVASTATIN 40 MG TAB PO SCH (21:59)
[2021-08-08] VITALS (9 sets, daily range): BP systolic 124–165; BP diastolic 62–92
[2021-08-08] MEDS: HYDROMORPHONE 1MG/1ML INJ IV PRN ×9 (00:30→23:45)
[2021-08-08] MEDS: SODIUM CHLORIDE 0.9% 1000ML 1,000 ML IV SCH ×3 (06:07→22:32)
[2021-08-08 06:10] LABS: BASOPHILS % 0.4 % (0.0-1.0); EOSINOPHILS # (AUTO) 0.2 (0.0-0.4); EOSINOPHILS % 2.7 % (0.0-6.0); LYMPHOCYTES # (AUTO) 1.8 (1.0-3.2); MEAN CORPUSCULAR HEMOGLOBIN 24.8 pg (28-32); MEAN CORPUSCULAR VOLUME 77.4 fL (81-99); MONOCYTES # (AUTO) 0.6 (0.2-0.8); MONOCYTES % 7.7 % (4.4-11.3); NEUTROPHILS # (AUTO) 4.7 (2.1-6.9); NEUTROPHILS % 63.8 % (38.7-80.0); PLATELET COUNT 315 x10e3/uL (140-360); RED BLOOD COUNT 3.23 x10e6/uL (4.3-5.7); RED CELL DISTRIBUTION WIDTH 14.7 % (11.7-14.4)
[2021-08-08 06:27] LABS: ALBUMIN 2.1 g/dL (3.5-5.0); ALBUMIN/GLOBULIN RATIO 0.4 (0.8-2.0); ANION GAP 9.7 mmol/L (8-16); CREATININE, SERUM 1.26 mg/dL (0.72-1.25); POTASSIUM 3.7 mmol/L (3.5-5.1)
[2021-08-08] MEDS: POLYETHYLENE GLYCOL 3350 17 GM PACK PO SCH ×2 (09:00→17:00)
[2021-08-08] MEDS: ASPIRIN 81 MG ENTERIC COATED PO SCH (09:00)
[2021-08-08] MEDS: DOCUSATE SODIUM 100 MG CAP PO SCH ×3 (09:00→20:35)
[2021-08-08] MEDS: Vancomycin IV 1 GM in SODIUM CHLORIDE 0.9% 250ML 250 ML IV SCH ×2 (09:00→20:35)
[2021-08-08] MEDS: PRASUGREL 10 MG TAB PO SCH (09:00)
[2021-08-08] MEDS: PIPERACILLIN/TAZOBACTAM 3.375 GM in SODIUM CHLORIDE 0.9% 50ML 50 ML IV SCH ×2 (09:00→21:00)
[2021-08-08] MEDS: INSULIN REGULAR, HUMAN 100 UNIT/1 ML SQ SCH ×4 (11:30→21:00)
[2021-08-08] MEDS ORDERED: ONDANSETRON HCL 4 MG ORAL DISINTEGRATING TAB PO PRN (11:45)
[2021-08-08] MEDS: ATORVASTATIN 40 MG TAB PO SCH (20:35)
[2021-08-09] MEDS: HYDROMORPHONE 1MG/1ML INJ IV PRN ×3 (02:46→12:20)
[2021-08-09 04:00] VITALS: BP 165/89
[2021-08-09] MEDS: SODIUM CHLORIDE 0.9% 1000ML 1,000 ML IV SCH (05:30)
[2021-08-09] MEDS: INSULIN REGULAR, HUMAN 100 UNIT/1 ML SQ SCH ×2 (07:30→11:30)
[2021-08-09 08:00] VITALS: BP 147/84
[2021-08-09 08:20] VITALS: BP 147/84
[2021-08-09] MEDS: ASPIRIN 81 MG ENTERIC COATED PO SCH (09:00)
[2021-08-09] MEDS: PRASUGREL 10 MG TAB PO SCH (09:00)
[2021-08-09] MEDS: POLYETHYLENE GLYCOL 3350 17 GM PACK PO SCH (09:00)
[2021-08-09] MEDS: DOCUSATE SODIUM 100 MG CAP PO SCH (09:00)
[2021-08-09] MEDS ORDERED: CEFTRIAXONE 2 GM in SODIUM CHLORIDE 0.9% 100 ML IV SCH (09:45)
[2021-08-09] MEDS ORDERED: ASPIRIN EC81 MG PO (09:59)
[2021-08-09] MEDS ORDERED: EFFIENT10 MG PO (09:59)
[2021-08-09] MEDS ORDERED: ONDANSETRON ODT4 MG PO (10:01)
[2021-08-09 11:44] VITALS: BP 149/85
[2021-08-09] MEDS ORDERED: ACETAMINOPHEN-1 EAC4 PO (12:33)
== END 2021-08-09 13:42 | disposition home or self-care (01) | DRG 463 ==
LOC: ER 20:44 → ERHOLD 21:45 → MED/SURG3 23:46
PROVIDERS: ADMIT Internal Medicine; ATTEND Internal Medicine
PROC: 0Y6N0ZB Detachment at Left Foot, Partial 2nd Ray, Open Approach (ICD-10-PCS; 2021-08-04)
PROC: 0JBR0ZZ Excision of Left Foot Subcutaneous Tissue and Fascia, Open Approach (ICD-10-PCS; 2021-08-04)
PROC: 02HV33Z Insertion of Infusion Device into Superior Vena Cava, Percutaneous Approach (ICD-10-PCS; 2021-08-04)
PROC: 0Y6N0Z9 Detachment at Left Foot, Partial 1st Ray, Open Approach (ICD-10-PCS; principal; 2021-08-04 11:30)
DX: T87.44 Infection of amputation stump, left lower extremity (principal); A41.9 Sepsis, unspecified organism; R65.20 Severe sepsis without septic shock; A48.0 Gas gangrene; M86.172 Other acute osteomyelitis, left ankle and foot; E10.52 Type 1 diabetes mellitus with diabetic peripheral angiopathy with gangrene; M84.475A Pathological fracture, left foot, initial encounter for fracture; N17.9 Acute kidney failure, unspecified; T87.81 Dehiscence of amputation stump; E10.69 Type 1 diabetes mellitus with other specified complication; E66.9 Obesity, unspecified; E10.65 Type 1 diabetes mellitus with hyperglycemia; I25.10 Atherosclerotic heart disease of native coronary artery without angina pectoris; E78.5 Hyperlipidemia, unspecified; Z79.4 Long term (current) use of insulin; Z87.820 Personal history of traumatic brain injury; E10.22 Type 1 diabetes mellitus with diabetic chronic kidney disease; Z91.09 Other allergy status, other than to drugs and biological substances; Z95.5 Presence of coronary angioplasty implant and graft; Z89.412 Acquired absence of left great toe; Z72.89 Other problems related to lifestyle; I13.10 Hypertensive heart and chronic kidney disease without heart failure, with stage 1 through stage 4 chronic kidney disease, or unspecified chronic kidney disease; N18.30 Chronic kidney disease, stage 3 unspecified; K59.00 Constipation, unspecified; Z68.27 Body mass index [BMI] 27.0-27.9, adult
CPT/HCPCS: 36415; 36569; 71045; 80048; 80053; 80061; 80202; 81001; 82550; 82553; 82948; 83605; 83735; 83880; 84100; 84484; 85025; 87040; 87071; 87075; 87205; 88304; 88305; 88311; 93005; 93926; 94799; 96361; 96372; 99251; 99284; J0696; J1100; J1170; J1817; J2001; J2405; J2543; J3010; J3370; J7030; J7050; U0002